=== PATIENT | female | born 1945 | race African-American/Black ===

== ENCOUNTER 2017-03-19 10:57 | Emergency (ER) | payer MEDICARE ==
[~2017-03-19] VITALS: Ht 160 cm; Wt 90.9 kg
[2017-03-19] MEDS ORDERED: SIMV-259 PO (11:12)
[2017-03-19] MEDS ORDERED: METO25 PO (11:12)
[2017-03-19] MEDS ORDERED: HYDROCODONE/ACETAMINOPHEN 5-325 MG TABLET PO ONE (11:45)
[2017-03-19] MEDS ORDERED: MORPHINE SULFATE 4 MG/ML SYRINGE IM ONE (12:45)
[2017-03-19] MEDS ORDERED: ONDANSETRON HCL 4 MG/2 ML VIAL IM ONE (12:45)
[2017-03-19 13:13] VITALS: BP 150/78
== END 2017-03-19 13:34 | disposition home or self-care (01) ==
LOC: EMS 10:59
DX: S82.831A Other fracture of upper and lower end of right fibula, initial encounter for closed fracture (principal); S92.352A Displaced fracture of fifth metatarsal bone, left foot, initial encounter for closed fracture; I10 Essential (primary) hypertension; E78.00 Pure hypercholesterolemia, unspecified; W17.89XA Other fall from one level to another, initial encounter; Y93.89 Activity, other specified; Y92.89 Other specified places as the place of occurrence of the external cause; Y99.8 Other external cause status
CPT/HCPCS: 29515; 73610; 73630; 96372; 99284; J2270; J2405